=== PATIENT | female | born 1950 | race Hispanic/Latino ===

== ENCOUNTER 2023-09-15 08:30 | Inpatient (IN) | payer MEDICARE ==
[2023-09-15] MEDS ORDERED: Ondansetron PF 4 MG/2 ML Vial ONE (09:30)
[2023-09-15] MEDS ORDERED: Ketorolac Tromethamine 30 MG (1 mL) VIAL ONE (09:30)
[2023-09-15] MEDS ORDERED: HYDROmorphone 0.5 MG/0.5 ML SYRINGE ONE ×2 (09:30→13:30)
[2023-09-15 09:48] LABS: #Basophils Less than 0.03 10x3/uL (0.0-0.2); %Basophils 0.1 % (0.0-1.0); %Eosinophils 2.5 % (0.0-10.0); %Lymphocytes 22.1 % (21.0-51.0); %Monocytes 6.3 % (0.0-10.0); %Neutrophils 68.8 % (42.0-75.0); Hematocrit 46.3 % (36.0-47.0); Hemoglobin 15.5 g/dL (12.0-16.0); Mean Corpuscular HGB CONC 33.5 g/dL (32.0-36.0); Mean Corpuscular Hemoglobin 29.8 pg (27.0-31.0); Mean Corpuscular Volume 88.9 fL (78.0-98.0); Mean Platelet Volume 9.5 fL (7.4-10.4); Platelet Count 297 10x3/uL (130-400); RBC Distribution Width 12.4 % (11.5-14.5); Red Blood Cell (RBC) Count 5.21 mill/uL (4.20-5.40)
[2023-09-15 10:03] LABS: ALT (SGPT) 24 U/L (8-55); AST (SGOT) 22 U/L (5-34); Albumin 3.7 g/dL (3.4-4.8); Alkaline Phosphatase 85 U/L (40-110); Anion Gap 17 mmol/L (10-20); BUN (Urea Nitrogen) 7 mg/dL (9.8-20.1); Bilirubin, Total 0.4 mg/dL (0.2-1.2); Calc. Creatinine Clearance 0 mL/min (70-130); Calcium 10.1 mg/dL (7.8-10.44); Carbon Dioxide 23 mmol/L (23-31); Chloride 103 mmol/L (98-107); Estimated GFR 98; Globulin 4.2 g/dL (2.4-3.5); Glucose 139 mg/dL (83-110); Potassium 3.9 mmol/L (3.5-5.1); Protein, Total 7.9 g/dL (5.8-8.1); Sodium 139 mmol/L (136-145)
[2023-09-15 12:25] LABS: Bacteria/HPF 4+ HPF (None Seen); Bilirubin Negative (Negative); Blood, Urine Negative (Negative); CAUTI Indications for Culture Pelvic or flank pain; Clarity Extra Turbid (Clear); Glucose, Urine (Dipstick) Normal (Negative); Ketone, Urine 40 mg/dL (Negative); Leukocyte 500 Leu/uL (Negative); Nitrite 2+ (Negative); Protein, Urine (Dipstick) 20 mg/dL (Neg-Trace); RBC/HPF 0-3 HPF (0-3); Specific Gravity, Urine 1.017 (1.002-1.036); Squamous Epithelial None Seen HPF (0-3); WBC/HPF Greater than 50 HPF (0-3)
[2023-09-15 12:27] LABS: Urine Culture Reflex Yes Yes
[2023-09-15] MEDS ORDERED: Sodium Chloride 0.9% 100 ML ONE (14:05)
[2023-09-15] MEDS ORDERED: cefTRIAXone (ROCEPHIN) 1 GM VIAL ONE (14:05)
[2023-09-15] MEDS ORDERED: Acetaminophen 325 MG TAB PO PRN (15:23)
[2023-09-15] MEDS ORDERED: Ondansetron PF 4 MG/2 ML Vial IVP PRN (15:23)
[2023-09-15] MEDS ORDERED: Ondansetron ODT 4 MG TAB PO PRN (15:23)
[2023-09-15] MEDS ORDERED: Bisacodyl 5 MG TAB PO PRN (15:23)
[2023-09-15 15:34] VITALS: BMI 28.8
[2023-09-15] MEDS ORDERED: Dextrose 5% in Water 1,000 ML IV PRN (15:48)
[2023-09-15] MEDS ORDERED: Dextrose 50% Abboject 50 ML SYRINGE SLOW IVP PRN (15:48)
[2023-09-15] MEDS ORDERED: Insulin Regular 300 UNITS/3 ML VIAL SC PRN (15:48)
[2023-09-15] MEDS ORDERED: Glucagon 1 MG/ML KIT IM PRN (15:48)
[2023-09-15] MEDS: Tamsulosin HCl 0.4 MG CAP PO SCH (16:19)
[2023-09-15] MEDS: Meropenem 1 GM in Sodium Chloride 0.9% 100 ML IVPB SCH ×3 (16:19→23:35)
[2023-09-15] MEDS: Morphine 2 MG/ML VIAL SLOW IVP PRN (19:25)
[2023-09-16 04:10] VITALS: TEMP 98.5
[2023-09-16 06:08] LABS: #Basophils Less than 0.03 10x3/uL (0.0-0.2); %Basophils 0.2 % (0.0-1.0); %Eosinophils 3.9 % (0.0-10.0); %Lymphocytes 26.9 % (21.0-51.0); %Monocytes 9.2 % (0.0-10.0); %Neutrophils 59.5 % (42.0-75.0); Hematocrit 39.4 % (36.0-47.0); Hemoglobin 13.1 g/dL (12.0-16.0); Mean Corpuscular HGB CONC 33.2 g/dL (32.0-36.0); Mean Corpuscular Hemoglobin 30.3 pg (27.0-31.0); Mean Corpuscular Volume 91.2 fL (78.0-98.0); Mean Platelet Volume 9.5 fL (7.4-10.4); Platelet Count 239 10x3/uL (130-400); RBC Distribution Width 12.5 % (11.5-14.5); Red Blood Cell (RBC) Count 4.32 mill/uL (4.20-5.40)
[2023-09-16 06:33] LABS: Anion Gap 12 mmol/L (10-20); BUN (Urea Nitrogen) 8 mg/dL (9.8-20.1); Calc. Creatinine Clearance 101 mL/min (70-130); Calcium 9.5 mg/dL (7.8-10.44); Carbon Dioxide 28 mmol/L (23-31); Chloride 105 mmol/L (98-107); Estimated GFR 96; Glucose 113 mg/dL (83-110); Potassium 4.1 mmol/L (3.5-5.1); Sodium 141 mmol/L (136-145)
[2023-09-16] MEDS: Tamsulosin HCl 0.4 MG CAP PO SCH (09:27)
[2023-09-16] MEDS: Enoxaparin 40 MG (0.4 mL) SYRINGE SC SCH (09:27)
[2023-09-16] MEDS ORDERED: traMADol HCl 50 MG TAB PO PRN (11:50)
[2023-09-16] MEDS ORDERED: Morphine 2 MG/ML VIAL SLOW IVP PRN (11:52)
[2023-09-16] MEDS: Lidocaine 4% Patch TD SCH ×2 (12:16→12:19)
[2023-09-16] MEDS: Ketorolac Tromethamine 30 MG (1 mL) VIAL IVP SCH (12:18)
[2023-09-16 16:23] VITALS: BP 161/78
[2023-09-16] MEDS ORDERED: Transdermal Patch Removal TOP SCH (23:59)
== END 2023-09-16 16:36 | disposition home or self-care (01) | DRG 552 ==
LOC: ERS 08:30 → T4-A 15:25
PROVIDERS: ADMIT Hospitalist; ATTEND Family Medicine
DX: M51.36 Other intervertebral disc degeneration, lumbar region (principal); M16.11 Unilateral primary osteoarthritis, right hip; E78.5 Hyperlipidemia, unspecified; R82.71 Bacteriuria; N20.0 Calculus of kidney; M51.37 Other intervertebral disc degeneration, lumbosacral region; E11.9 Type 2 diabetes mellitus without complications; I10 Essential (primary) hypertension; Z87.442 Personal history of urinary calculi; Z79.84 Long term (current) use of oral hypoglycemic drugs; Z79.899 Other long term (current) drug therapy; Z90.49 Acquired absence of other specified parts of digestive tract; Z90.710 Acquired absence of both cervix and uterus
CPT/HCPCS: 36415; 36416; 74176; 80048; 80053; 81001; 85025; 87077; 87086; 87186; 96374; 96375; 96376; J0696; J1170; J1650; J1815; J1885; J2185; J2272; J2405; J3490